=== PATIENT | female | born 1995 | race Asian ===

== ENCOUNTER 2018-12-23 15:31 | Emergency (ER) | payer OTHER ==
[~2018-12-23] VITALS: Ht 175.3 cm; Wt 99.8 kg
[2018-12-23 17:13] LABS: PLATELET COUNT 326 K/uL (152-353)
[2018-12-23 17:19] LABS: POTASSIUM 3.8 mmol/L (3.6-5.2)
[2018-12-23 19:25] VITALS: BP 142/73; TEMP 98.9
== END 2018-12-23 19:25 | disposition home or self-care (01) ==
LOC: ED 15:31
PROVIDERS: Family Medicine
DX: M54.5 Low back pain (principal)
CPT/HCPCS: 80053; 81000; 81025; 85027; 99283

== ENCOUNTER 2019-05-19 22:29 | Emergency (ER) | payer OTHER ==
[~2019-05-19] VITALS: Ht 175.3 cm; Wt 111.1 kg
[2019-05-20 00:52] VITALS: BP 132/88; TEMP 97.7
== END 2019-05-20 00:52 | disposition home or self-care (01) ==
LOC: ED 22:29
DX: Z33.1 Pregnant state, incidental (principal); J10.1 Influenza due to other identified influenza virus with other respiratory manifestations
CPT/HCPCS: 36415; 81000; 81025; 84702; 87502; 87651; 99283